=== PATIENT | male | born 1990 | race Hispanic/Latino ===

== ENCOUNTER 2016-09-28 12:23 | Emergency (ER) | payer OTHER ==
[~2016-09-28] VITALS: Ht 170.2 cm; Wt 56.8 kg
[2016-09-28 12:27] VITALS: BP 127/71; PULSE 66; RESP 14; O2SAT 98
[2016-09-28 13:06] LABS: BASOPHILS % (AUTO) 0.5 % (0-3); EOSINOPHILS % (AUTO) 0.5 % (0-5); MONOCYTES % (AUTO) 8.6 % (4-12); Mean Corpuscular Hemoglobin 30.2 pg (27.0-35.0); Mean Corpuscular Volume 84.3 fL (81-100); NEUTROPHILS % (AUTO) 48.5 % (40-74); Platelet Count 237 bil/L (150-400)
--- NOTE | 2016-09-28 13:42 | ED.REPORT ---
HPI-Abd Pain M Under 40 Date of Service Sep 28, 2016 ED Provider: Low Fall History of Present Illness: 25yo male with intermittent abdominal pain for 2-3 months. No fever, n/v/d, or change in appetite. No melena. Denies any exacerbating or relieving factors. Pain is epigastric today, though other times more diffuse. Nursing Notes Stated Complaint: CHEST PAIN Chief Complaint: General Complaint Nursing Notes Reviewed: Yes Allergies: Uncoded Allergies: PENICILLIN (Allergy, Unknown, rash, 09/28/16) General Time Seen by MD: 13:40 Chief Complaint Abdominal pain Hx Obtained From: Patient Arrived By: Walk-in Sudden in Onset?: No Onset Occurred: More than a week ago... (3 months) Symptom Duration: Waxes and wanes Location: : Epigastric Quality: Same as prior Radiation: : Does not radiate Severity: Current: Mild Severity: Maximum: Moderate Associated with: Denies: Chest pain, Chills, Diarrhea, Fever, Hematemesis, Hematochezia, Melena, Vomiting Pertinent Negative: Pt denies other symptoms Pertinent Negative: Exacerbated by nothing, Relieved by nothing Recent Healthcare: No recent doctor visit Similar Sx Previous: Yes Risk Factors Torsion Risk Stratification Risk factors reviewed CAD Risk Stratification Risk factors reviewed TAD Risk Stratification Risk factors N/A Past Medical History Past Medical History denies Past Surgical History denies Smoking History Never Smoker Social History Alcohol Use: Denies alcohol use Other Social History: Good social support Ambulatory Status Independent Review of Systems Constitutional: Denies: Chills, Fever GI: Reports: Abdominal pain, Denies: Anorexia, Belching, Diarrhea, Dysphagia, Hematemesis, Hematochezia, Nausea, Vomiting Musculoskeletal: Denies: Back pain Complete sys rev & neg: except as marked. Physical Exam Initial Vital Signs Vital Signs (First) Date Time Temp Pulse Resp B/P Pulse Ox O2 Delivery O2 Flow Rate FiO2 09/28/16 12:27 36.8 66 14 127/71 98 Room Air Initial VS: Vital signs normal General/Constitutional: Awake, Alert, No acute distress, Well hydrated Respiratory / Chest: Breath sounds NL, Breath sounds = bilat, No respiratory distress Cardiovascular: Heart rate NL, Regular rhythm, Heart sounds NL Abdomen: Soft, Non-tender, No guarding, No rebound, BS normoactive Interpretation & Diagnostics Lab Results Interpretation Result Diagram: 09/28/16 1300 09/28/16 1300 Test 09/28/16 13:00 White Blood Count 3.9th/mm3 (3.8-10.1) Red Blood Count 5.47mil/mm3 (4.40-5.80) Hemoglobin 16.5g/dL (13.8-17.2) Hematocrit 46.1% (41.0-50.0) Mean Corpuscular Volume 84.3fL (81-100) Mean Corpuscular Hemoglobin 30.2pg (27.0-35.0) Mean Corpuscular Hemoglobin Concent 35.8% (32.0-37.0) Red Cell Distribution Width 12.2% (12.3-15.4) Platelet Count 237bil/L (150-400) Neutrophils (%) (Auto) 48.5% (40-74) Lymphocytes (%) (Auto) 41.6% (14-46) Monocytes (%) (Auto) 8.6% (4-12) Eosinophils (%) (Auto) 0.5% (0-5) Basophils (%) (Auto) 0.5% (0-3) Sodium Level 140mEq/L (134-144) Potassium Level 4.2mEq/L (3.5-5.2) Chloride Level 102mEq/L (97-108) Carbon Dioxide Level 25mmol/L (18-29) Blood Urea Nitrogen 11mg/dL (6-20) Creatinine 0.71mg/dL (0.76-1.27) Estimat Glomerular Filtration Rate 141mL/min (>59) Glucose Level 88mg/dL (60-99) Calcium Level 9.7mg/dL (8.5-10.1) Magnesium Level 2.0mg/dL (1.6-2.6) Total Bilirubin 1.2mg/dL (0.0-1.2) Aspartate Amino Transf (AST/SGOT) 16U/L (0-50) Alanine Aminotransferase (ALT/SGPT) 11U/L (0-44) Alkaline Phosphatase 54U/L (25-150) Total Protein 7.2g/dL (6.4-8.4) Albumin 4.4g/dL (3.4-5.0) Lipase 15U/L (13-60) Hold Cannon Top Tube Received (Received) ECG Interpretation ECG Interpretation: 60bpm, NSR, no acute changes. Reviewewed with Dr. Carlson. Interpreted by: ED physician X-Ray Abdominal Interpretation PROCEDURE: X-RAY ACUTE ABDOMINAL SERIES ([id number]) INDICATIONS: abdominal pain TECHNIQUE: One view chest and two views of the abdomen were acquired. COMPARISON: [facility], CT, CT ABD PELVIS W CON, 11/01/2015, 15:45. FINDINGS: Surgical changes and devices: None. Chest: Lungs are clear. Heart size is normal. No pleural effusions. No pneumoperitoneum. Abdomen: Bowel gas pattern is normal, with moderate amount of colonic stool. No suspicious calcifications. Visualized solid organ contours appear normal. Bones: No suspicious bony lesions. IMPRESSION: Moderate amount of colonic stool distributed throughout the course of the colon otherwise normal bowel gas pattern. No definite acute process identified. Dictated by: Andre Lucas RRA Interpreted: Keyon Yung MD on 09/28/2016 at 15:03 Transcribed by: ALPA on 09/28/2016 at 15:04 Approved by: Keyon Yung M.D. on 09/28/2016 at 15:16 Re-Eval/Medical Decision Med Decision/Clinical Course Pt. length of intermitent symptoms, benign exam, and labs/imaging studies in ED suggest possible constipation as cause of symptoms. Encouraged Mag Citrate and high fiber diet, follow up witrh PCP. Diagnosis Appears: Evident Counseled Regarding: Diagnosis, Lab results, Need for follow-up, When/why to return to ED Patient Discharge & Departure Primary Impression: Abdominal pain Abdominal location: generalized Qualified Code: R10.84 - Generalized abdominal pain Additional Impression: Constipation Constipation type: unspecified constipation type Qualified Code: K59.00 - Constipation, unspecified Discharge Condition Condition: Stable Patient Instructions: Acute Abdominal Pain (ED), Constipation (ED) Additional Instructions: Increase fiber in diet. Use Magnesium citrsate as directed. Folloiw up with your doctor in 2-3 days if not improving as expected. Return yto ER if anything worsens. Referrals: [facility] (PCP) 2-3 days recheck EDSupervising Provider for APC: Mamadou Carlson MD, Christopher R PAC Sep 28, 2016 13:42
--- NOTE | 2016-09-28 15:05 | DRSVH ---
PROCEDURE: X-RAY ACUTE ABDOMINAL SERIES ([id number]) INDICATIONS: abdominal pain TECHNIQUE: One view chest and two views of the abdomen were acquired. COMPARISON: [facility], CT, CT ABD PELVIS W CON, 11/01/2015, 15:45. FINDINGS: Surgical changes and devices: None. Chest: Lungs are clear. Heart size is normal. No pleural effusions. No pneumoperitoneum. Abdomen: Bowel gas pattern is normal, with moderate amount of colonic stool. No suspicious calcific ations. Visualized solid organ contours appear normal. Bones: No suspicious bony lesions. IMPRESSION: Moderate amount of colonic stool distributed throughout the course of the colon otherwise normal bowel gas pattern. No definite acute process identified. Dictated by: Andre GARCIA Interpreted: Keyon Yung MD on 09/28/2016 at 15:03 Transcribed by: ALPA on 09/28/2016 at 15:04 Approved by: Keyon Yung M.D. on 09/28/2016 at 15:16
[2016-09-28 16:02] VITALS: BP 113/60; PULSE 63; RESP 16; O2SAT 98
== END 2016-09-28 16:03 ==
LOC: SED 12:23
DX: R10.13 Epigastric pain (principal); K59.00 Constipation, unspecified

== ENCOUNTER 2016-12-25 12:07 | Day surgery (SDC) | payer OTHER ==
[~2016-12-25] VITALS: Ht 167.6 cm; Wt 57.1 kg
[~2016-12-25 12:07] MED LIST: 0.9% Sodium Chloride 1,000 ML IV PRN; Sodium Chloride LOK Flush 10 mL Syringe IV PRN; fentaNYL-PF 50 mCg/mL 2 mL Inj IVPUSH PRN
[2016-12-25] MEDS ORDERED: fentaNYL-PF 50 mCg/mL 2 mL Inj ONE (12:08)
[2016-12-25] MEDS ORDERED: Propofol 10,000 mCg/mL 20 mL Inj ONE (12:08)
[2016-12-25 13:15] VITALS: BP 121/78; PULSE 66; RESP 16; O2SAT 100
--- NOTE | 2016-12-25 14:06 | PCM.HPANE ---
Patient Data Surgeon Admitting Provider: Attending Provider:Grayson Baeza MD Primary Care Physician:[facility] Other Provider: Reason for Visit Abdominal Pain Of Unknow Cause Ht/WT & BMI Height (Feet): 5 Height (Inches): 6 Weight (Kilograms): 57.15 Body Mass Index 20.00 Allergies Coded Allergies: Penicillins (Verified Allergy, Severe, RASH, 12/22/16) Past Anesthesia History Anesthesia History: Positive for:: Anesthesia Reactions (REALLY BAD NAUSEA WITH CONSCIOUS SEDATION), Denies:: Abnormal Airway, Difficult Intubation, Fam Anesthesia Reaction, Fam Malignant Hypertherm, Malignant Hyperthermia Diabetes History Hx Diabetes?: No MRSA MRSA: No Medications Home Meds Incl Beta Michael: No History History of ENT Problems?: No HEENT History: Positive for:: Dysphagia (SOMETIMES FOOD GOES DOWN SLOW) Denies:: Abnormal Airway Difficult Intubation Hearing Problem Denture Type: None Teeth Condition: Within Normal Limits Hx of Heart Problems?: No Cardiovascular History: Denies:: AICD Atrial Fibrillation Chest Pain Hypertension Pacemaker Valvular Heart Disease Hx of Respiratory Problem?: No Respiratory History: Denies:: Asthma COPD Chest Surgery Cough Dyspnea Emphysema Hemoptysis Oxygen Administration Pneumonia Pulmonary Embolism Tuberculosis Use of C-PAP Machine Use of Inhalers / NEBS Hx Neurologic Problems?: No Neurological History: Denies:: Alzheimer's Disease CVA Dementia Dizziness Headaches Multiple Sclerosis Parkinson's Disease Peripheral Neuropathy Seizures TIA Hx of GI Problems?: No Gastrointestinal History: Denies:: Cirrhosis Diverticulitis Gall Bladder Disease Gastroesphageal Reflux Gastrointestinal Bleeding Heartburn Hepatitis Hiatal Hernia Liver Disease Rectal Bleeding Hx of Problems?: No Genitourinary History: Denies:: HX of Hemodialysis Kidney Stones Urinary Tract Infection HX of Peritoneal Dialysis: No Male Hx: Denies:: Prostate Problems Scrotal Mass Testicular Surgery Skin History: Denies:: History Skin Disorders? Pressure Ulcers Hx Musculoskeletal Problems?: No Musculoskeletal History: Denies:: Back Injury Degenerative Joint Fibromyalgia Joint Replacement Musculoskeletal Trauma Myasthenia Gravis Osteoarthritis Rheumatoid Arthritis Systemic Lupus Psycho Social History: Positive for:: Anxiety Denies:: Hx Depression Hx Surgeries?: Yes (EGD/COLONOSCOPY IN [place]) Hx Any Other Health Problems?: Yes Hx Diabetes: No Hx Alcohol Use: Yes (SELDOM) Smoking Status: Never Smoker Stop/Bang Treated for Sleep Apnea?: No Do You Have a CPAP Machine?: No S-Snoring: Do You Snore Loudly: No T-Tired: feel tired, fatigued: No O-Obsered: Observed not breath: No P-Blood Pressure: treated: No B- Body Mass Index > 35 kg/m2: No A- Age over 50: No N- Neck Large Circumference: No G- Gender Male: Yes CASS Total Score: 1 Risk Assessment Category Category 1A: Patient has history of documented sleep apnea, and HAS NOT received any narcotic, sedative or anesthesia administration during this stay. Category 1B: Patient has history of documented sleep apnea, and HAS received any narcotic , sedative or anesthesia administration during this stay Category 2: Patient has SUSPECTED Obstructive Sleep Apnea, and HAS received any narcotic , sedative or anesthesia administration during this stay. Category 3: Patient has SUSPECTED Obstructive Sleep Apnea and HAS NOT received narcotic, sedative or anesthesia administration during this stay. Category 4: Outpatient in Procedural Areas with known sleep apnea or who screen positive for High Risk via the STOP/BANG questionnaire. Exam Exam Vital Signs Vital Signs Date Time Temp Pulse Resp B/P Pulse Ox O2 Delivery O2 Flow Rate FiO2 12/25/16 13:15 66 16 121/78 100 Room Air General Appearance: Alert, Oriented X3, Cooperative, No Acute Distress HEENT/AIRWAY: MP 2, Neck Movement (from), Mouth Opening (wnl) Lungs: Clear to Auscultation Heart: Exam Unremarkable Plan Impression Patient chart reviewed, patient interviewed and anesthestic plan with risks, benefits, and alternatives discussed, and informed consent obtained. ASA Physical Status: ASA2 Mod Systemic Disease Anesthetic Plan: GA Bene/Risks/Altern/Consents: Yes HP Complete Prior to Induction: Yes Brett Meza MD Dec 25, 2016 14:06
[2016-12-25] MEDS: Lactated Ringer's 1,000 ML IV ONE ×2 (14:22→14:30)
--- NOTE | 2016-12-25 14:35 | PCM.ENDEGD ---
EGD Date of Service: Dec 25, 2016 Physician Grayson Baeza MD Pre Procedure Diagnosis: Abdominal pain Post Procedure Dx & Findings: Slightly blunted duodenal folds and gastritis Procedure Esophagogastroduodenoscopy PROCEDURE IN DETAIL: After proper sedation, Olympus video endoscope was inserted into patient's mouth and esophagus was successfully intubated. Scope introduced esophagus. Esophagus showed normal shiny whitish mucosa consistent with squamous cell component. Z line was intact at 40 cm from the incisors. Scope further advanced to the stomach. The antrum and the body of the stomach showed some atrophy with mottled appearance. Multiple biopsies obtained. Cardia fundus body antrum pylorus were all visualized. Retroflexion was done. Stomach was easily inflated and deflatable using air. Scope further advanced to the distal duodenum. Duodenum revealed some mild blunting of the duodenum folds. 5 biopsies obtained. Impression Slightly blunted duodenal folds gastritis Recommendation Await biopsies Presedation Assessment Risks and Benefits Informed consent was obtained from the patient after all risks and benefits including but not limited to drug reaction, infection, pain, bleeding, perforation, as well as alternatives were discussed. Patient monitoring Continuous pulse oximetry, cardiac monitoring, blood pressure monitoring, IV access, and oxygen at 2L per nasal cannula. Complications There were no periprocedural complications identified. Post Procedure Plan Post Procedure Recommendations 1. Restrict activities today. 2. Resume normal activities in the morning. 3. Resume medications. 4. GERD behavioral modification: - Avoid fatty, acidic, spicy, large meals - Do not lie down after meals - Do not eat or drink anything for at least 2 1/2 hours before going to bed at night - Discontinue tobacco and alcohol - Decrease or avoid caffeine - Avoid chocolate and mints - Decrease weight - Avoid aspirin and non steroidal anti-inflammatory agents (NSAID) such as Aleve, Advil, Mobic, Naproxen, Ibuprofen, etc 5. Add proton pump inhibitor. Take 30 minutes before 1st meal of the day. 6. Patient informed of normal post procedure side effects as bloating, drowsiness, blood streaking in the stool 7. If gastric biopsy reveal H.pylori, continue with appropriate treatment 8. If small bowel biopsy reveals celiac, continue with appropriate treatment 9. Please don't hesitate to call me with any questions Grayson Baeza MD Dec 25, 2016 14:35
[2016-12-25 14:40] VITALS: BP 116/73; PULSE 69; RESP 14; O2SAT 98
--- NOTE | 2016-12-25 14:43 | PCM.ANEP1 ---
Post Anesthesia PACU Phase 1 Assessment Vital Signs Vital Signs Date Time Temp Pulse Resp B/P Pulse Ox O2 Delivery O2 Flow Rate FiO2 12/25/16 14:40 69 14 116/73 98 Room Air 12/25/16 13:15 66 16 121/78 100 Room Air Anesthetic Administered: GA Level of Alertness: Awake, talking MADDOX's with Equal Strength: Yes Pain: No Nausea or Vomiting: No CV Function & Hydration Stable: Yes Airway Device: Oxygen Delivery: Room Air Lungs: Normal Air Movement PACU Phase 2 Assessment Complications: No Follow up Care: No Patient Instructions Provided: N/A Brett Meza MD Dec 25, 2016 14:42
[2016-12-25 14:49] VITALS: BP 116/69; PULSE 81; RESP 16; O2SAT 100
[2016-12-25 14:59] VITALS: BP 118/74; PULSE 61; RESP 16; O2SAT 99
--- NOTE | 2016-12-27 11:09 | PATH ---
SURGICAL PATHOLOGY Attending Physician:Grayson Baeza M.D. CASE STATUS: Signed Out PATIENT NAME: DAMARIS EGAN PID: [id number] : 1990 DATE COLLECTED:12/25/2016 00:00 SPECIMEN: 1: Duodenum, Biopsy 2: Gastric, Biopsy CLINICAL HISTORY: 1). DUODENAL BIOPSY 2). GASTRIC BIOPSY FINAL DIAGNOSIS: 1.DUODENAL BIOPSY: FRAGMENTS OF NORMAL-APPEARING SMALL BOWEL MUCOSA. Normal delicate mucosal villi present. Negative for significant inflammation, dysplasia and malignancy. 2.GASTRIC BIOPSY: MILD CHRONIC GASTRITIS INVOLVING FUNDIC MUCOSA. Negative for evidence of Helicobacter on H&E stain. Negative for intestinal metaplasia. Negative for dysplasia and malignancy. [id number] GROSS DESCRIPTION: The specimen is received in two formalin filled containers labeled with the patient's name. 1). The specimen is labeled "duodenal" and consists of 3 portions of tissue which aggregate to 0.2 x 0.2 x 0.2 CM. The specimen is entirely submitted in cassette 1A. 2). The specimen is labeled "gastric" and consists of 3 portions of tissue which aggregate to 0.2 x 0.2 x 0.2 CM. The specimen is entirely submitted in cassette 2A. 12/26/2016KY MICRO DESCRIPTION: See diagnosis. ICD-9 CODES: CPT CODES: 1: 14265 2: 61555 Electronically Signed Out Adrian Conde MD [facility] [address] [facility], [place] [address] Technical component performed at [facility], [address] [place] [address] [address], [place], [address]
== END 2016-12-25 23:59 | disposition home or self-care (01) ==
LOC: END 12:07
PROVIDERS: ATTEND Internal Medicine
DX: K29.50 Unspecified chronic gastritis without bleeding (principal); K31.89 Other diseases of stomach and duodenum
CPT/HCPCS: 43239; J3010; J7120